=== PATIENT | male | born 1960 | race Caucasian/White ===

== ENCOUNTER → 2018-11-15 | Outpatient (CLI) | payer MEDICARE ==
--- NOTE | 2018-11-15 11:30 | Diagnostic Imaging Report ---
EXAMINATION: Right hip, 3 views. COMPARISON: None. HISTORY: 58-year-old male, right hip pain. FINDINGS: There is a right total hip prosthesis. The femoral head is asymmetrically positioned within the acetabular cup which may relate to liner wear. The hardware appears otherwise intact. There is no periprosthetic lucency. There is partially visualized sideplate and screw fixation hardware at the level of the left acetabulum with chronic appearing deformity of the left acetabulum. There is no identified acute fracture. There are vascular calcifications noted. IMPRESSION: Asymmetric positioning of the right femoral head component of the hip prosthesis within the acetabular cup which may relate to liner wear. Dictated by: Dictated on workstation # [id number]
== END ==
LOC: RAD FS 10:33
PROVIDERS: ATTEND Physician Assistant
DX: M25.551 Pain in right hip (principal); Z96.641 Presence of right artificial hip joint
CPT/HCPCS: 73502

== ENCOUNTER 2019-10-28 16:45 | Emergency (ER) | payer MEDICARE ==
[~2019-10-28] VITALS: Ht 187 cm; Wt 170.0 kg
[2019-10-28] MEDS ORDERED: ALPR0.5T7 (17:03)
[2019-10-28 17:44] LABS: HEMATOCRIT 39 % (40-54); HEMOGLOBIN 12.7 G/DL (13.3-17.7); MEAN CORPUSCULAR HEMOGLOBIN 30 PG (25-34); MEAN CORPUSCULAR HGB CONC 33 G/DL (32-36); MEAN CORPUSCULAR VOLUME 92 FL (80-99); MEAN PLATELET VOLUME 8.7 FL (7.4-10.4); PLATELET COUNT 354 10^3/uL (130-400); RED CELL DISTRIBUTION WIDTH 16.1 % (10.0-14.5)
[2019-10-28 17:45] LABS: BASOPHILS % (AUTO) 1 % (0-10); EOSINOPHILS % (AUTO) 2 % (0-10); LYMPHOCYTES % (AUTO) 27 % (12-44); MONOCYTES % (AUTO) 11 % (0-12); NEUTROPHILS % (AUTO) 60 % (42-75)
[2019-10-28 17:46] LABS: BASOPHILS # (AUTO) 0.1 10^3/uL (0.0-0.1); EOSINOPHILS # (AUTO) 0.2 10^3/uL (0.0-0.3); LYMPHOCYTES # (AUTO) 2.4 X 10^3 (1.0-4.0); NEUTROPHILS # (AUTO) 5.4 X 10^3 (1.8-7.8)
--- NOTE | 2019-10-28 17:46 | ED General ---
General Chief Complaint: Coughing up blood Stated Complaint: COUGHING UP BLOOD Nursing Triage Note: PT STATES HE WAS DRIVING ET FEELING FINE AND STARTED COUGHING UP BLOOD. 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 has been disease-free for decades pt is not aware of any bleeding prior to this no nosebleed he's not been coughing recently he is not on any blood thinners or aspirin he does take an arthritis medicine and occasional Xanax (AI HOU MD) Allergies and Home Medications Allergies Coded Allergies: No Known Drug Allergies (Unverified , 10/28/19) Patient Home Medication List Home Medication List Reviewed: Yes (DION BALDERAS JR, MD) Review of Systems Review of Systems Constitutional: no symptoms reported EENTM: see HPI Respiratory: no symptoms reported; No short of breath Gastrointestinal: no symptoms reported Genitourinary: no symptoms reported Musculoskeletal: no symptoms reported Skin: no symptoms reported (AI HOU MD) Past Ypihrlv-Eiwbww-Devtcd Hx Patient Social History Alcohol Use: Occasionally Uses Recreational Drug Use: Yes Drug of Choice: POT Smoking Status: Current Everyday Smoker Recent Foreign Travel: No Contact w/Someone Who Travel: No Recent Infectious Disease Expo: No Recent Hopitalizations: No (AI HOU MD) Past Medical History Surgeries: Yes Orthopedic Respiratory: No Cardiac: No Neurological: No Gastrointestinal: No Musculoskeletal: No Endocrine: No HEENT: No Cancer: Yes (NON-HODGKIN LYMPHOMA) What Type of Treatment Did You: Radiation BONE MARROW TRANSPLANT Psychosocial: No Integumentary: No (AI HOU MD) Physical Exam Vital Signs Vital Signs - First Documented 10/28/19 16:56 Temp 36.8 Pulse 83 Resp 16 B/P (MAP) 154/101 (118) Pulse Ox 99 O2 Delivery Room Air (DION BALDERAS JR, MD) Vital Signs Capillary Refill : Less Than 3 Seconds (AI HOU MD) Height, Weight, BMI Height: '" Weight: lbs. oz. kg; 48.00 BMI Method: General Appearance: No Apparent Distress Eyes: Bilateral Eye PERRL, Bilateral Eye EOMI HEENT: TMs Normal, Pharynx Normal, Other (patient had a little blood on his tongue a little in the right tonsillar pillar but I don't see any active bleeding any source anywhere no blood in the nose) Neck: Supple Respiratory: Lungs Clear, Normal Breath Sounds, No Accessory Muscle Use, No Respiratory Distress Cardiovascular: Regular Rate, Rhythm Gastrointestinal: Normal Bowel Sounds, Non Tender, Soft Extremity: Non Tender (AI HOU MD) Progress/Results/Core Measures Suspected Sepsis Recent Fever Within 48 Hours: No Infection Criteria Present: Suspected New Infection New/Unexplained Altered Menta: No Sepsis Screen: No Definite Risk SIRS Temperature: Pulse: 83 Respiratory Rate: 16 Laboratory Tests 10/28/19 17:19: White Blood Count 9.0 Blood Pressure 154 /101 Mean: 118 Laboratory Tests 10/28/19 17:19: INR Comment 0.9, Platelet Count 354 (AI HOU MD) Results/Orders Lab Results Laboratory Tests Test 10/28/19 17:19 Range/Units White Blood Count 9.0 4.3-11.0 10^3/uL Red Blood Count 4.22 L 4.35-5.85 10^6/uL Hemoglobin 12.7 L 13.3-17.7 G/DL Hematocrit 39 L 40-54 % Mean Corpuscular Volume 92 80-99 FL Mean Corpuscular Hemoglobin 30 25-34 PG Mean Corpuscular Hemoglobin Concent 33 32-36 G/DL Red Cell Distribution Width 16.1 H 10.0-14.5 % Platelet Count 354 130-400 10^3/uL Mean Platelet Volume 8.7 7.4-10.4 FL Neutrophils (%) (Auto) 60 42-75 % Lymphocytes (%) (Auto) 27 12-44 % Monocytes (%) (Auto) 11 0-12 % Eosinophils (%) (Auto) 2 0-10 % Basophils (%) (Auto) 1 0-10 % Neutrophils # (Auto) 5.4 1.8-7.8 X 10^3 Lymphocytes # (Auto) 2.4 1.0-4.0 X 10^3 Monocytes # (Auto) 1.0 0.0-1.0 X 10^3 Eosinophils # (Auto) 0.2 0.0-0.3 10^3/uL Basophils # (Auto) 0.1 0.0-0.1 10^3/uL Prothrombin Time 12.2 12.2-14.7 SEC INR Comment 0.9 0.8-1.4 Sodium Level 139 135-145 MMOL/L Potassium Level 3.9 3.6-5.0 MMOL/L Chloride Level 102 98-107 MMOL/L Carbon Dioxide Level 27 21-32 MMOL/L Anion Gap 10 5-14 MMOL/L Blood Urea Nitrogen 18 7-18 MG/DL Creatinine 1.14 0.60-1.30 MG/DL Estimat Glomerular Filtration Rate > 60 BUN/Creatinine Ratio 16 Glucose Level 97 70-105 MG/DL Calcium Level 9.6 8.5-10.1 MG/DL (DION BALDERAS JR, MD) My Orders Orders - DION BALDERAS JR, MD Sputum Culture (10/28/19 18:45) (DION BALDERAS JR, MD) Vital Signs/I&O 10/28/19 16:56 Temp 36.8 Pulse 83 Resp 16 B/P (MAP) 154/101 (118) Pulse Ox 99 O2 Delivery Room Air (DION BALDERAS JR, MD) Vital Signs/I&O Capillary Refill : Less Than 3 Seconds (AI HOU MD) Blood Pressure Mean: 118 Progress Note : Progress Note CXR - COPD no abnormal masses (AI HOU MD) Progress Note : Time: 18:52 Progress Note Blood now very minimal had a discussion with him about normal lab work and small amount of bleeding in his sputum that it was resolved was a lot more than that initially and has blood staining on his clothes at this point did culture the sputum we'll send him back to his primary care doctor for further evaluation discussed with him about the need to call or come back if any problems or in creasing the amount of hemoptysis (DION BALDERAS JR, MD) Transfer of Care Transfer of Care Time: 18:01 Care transferred to: Dr Balderas at shift change (AI HOU MD) Departure Impression Primary Impression: Hemoptysis Disposition: 01 HOME, SELF-CARE Condition: Stable Departure-Patient Inst. Referrals: CRISSY HARMON MD (PCP) Primary Care Physician Patient Instructions: Coughing up Blood AI HOU MD Oct 28, 2019 17:46 DION BALDERAS JR, MD Oct 28, 2019 18:54
[2019-10-28 17:53] LABS: INR 0.9 (0.8-1.4); PROTHROMBIN TIME PATIENT 12.2 SEC (12.2-14.7)
--- NOTE | 2019-10-28 17:56 | Diagnostic Imaging Report ---
INDICATION: Hemoptysis. COMPARISON: No comparison available. FINDINGS: The lungs demonstrate no focal infiltrate or consolidation. There is no evidence of an effusion or pneumothorax. Heart size and mediastinal contours appear appropriate and pulmonary vascularity appears within normal limits. The lateral view demonstrates some flattening of the diaphragms compatible with air trapping. No acute or suspicious osseous abnormality is evident. IMPRESSION: Apparent air trapping suggesting underlying COPD. No focal infiltrate or plain film evidence of nodule or mass evident. There is no effusion or pneumothorax. Pulmonary vascularity appears appropriate. Dictated by: Dictated on workstation # [id number]
[2019-10-28 18:16] LABS: BUN/CREATININE RATIO 16; CALCIUM 9.6 MG/DL (8.5-10.1); CARBON DIOXIDE 27 MMOL/L (21-32); CHLORIDE 102 MMOL/L (98-107); CREATININE SERUM 1.14 MG/DL (0.60-1.30); GFR ESTIMATED > 60; GLUCOSE 97 MG/DL (70-105); POTASSIUM 3.9 MMOL/L (3.6-5.0); SODIUM 139 MMOL/L (135-145)
[2019-10-28 18:57] VITALS: BP 154/101
--- OUTSIDE RECORDS SUMMARY | 2019-10-28 21:40 | XMS REPORT | Continuity of Care Document ---
Author Organization Unknown Address Unknown Phone Unavailable Allergies Active Description Code Type Severity Reaction Onset Reported/Identified Relationship to Patient Clinical Status Yes No Known Drug Allergies [id number] Drug Allergy Unknown N/A 10/28/2019 Medications There is no data. Problems Date Dx Coded Attending Type Code Diagnosis Diagnosed By 11/17/2018 ADINA JUAREZ Ot M25.551 PAIN IN RIGHT HIP 11/17/2018 ADINA JUAREZ Ot Z96.641 PRESENCE OF RIGHT ARTIFICIAL HIP JOINT 12/06/2018 ADINA JUAREZ Ot M25.551 PAIN IN RIGHT HIP 12/06/2018 ADINA JUAREZ Ot Z96.641 PRESENCE OF RIGHT ARTIFICIAL HIP JOINT 10/28/2019 ADINA JUAREZ Ot M25.551 PAIN IN RIGHT HIP 10/28/2019 ADINA JUAREZ Ot Z96.641 PRESENCE OF RIGHT ARTIFICIAL HIP JOINT Procedures There is no data. Results Test Result Range Complete blood count (CBC) with automate d white blood cell (WBC) differential - 10/28/19 17:19 Blood leukocytes automated count (number/volume) 9.0 10*3/uL 4.3-11.0 Blood erythrocytes automated count (number/volume) 4.22 10*6/uL 4.35-5.85 Venous blood hemoglobin measurement (mass/volume) 12.7 g/dL 13.3-17.7 Blood hematocrit (volume fraction) 39 % 40-54 Automated erythrocyte mean corpuscular volume 92 [ foz_us] 80-99 Automated erythrocyte mean corpuscular h emoglobin (mass per erythrocyte) 30 pg 25-34 Automated erythrocyte mean corpuscular h emoglobin concentration measurement (mass/volume) 33 g/dL 32-36 Automated erythrocyte distribution width ratio 16. 1 % 10.0- 14.5 Automated blood platelet count (count/volume) 354 10*3/uL 130-400 Automated blood platelet mean volume measurement 8.7 [foz_us] 7.4-10.4 Automated blood neutrophils/100 leukocytes 60 % 42-75 Automated blood lymphocytes/100 leukocytes 27 % 12-44 Blood monocytes/100 leukocytes 11 % 0-12 Automated blood eosinophils/100 leukocytes 2 % 0-10 Automated blood basophils/100 leukocytes 1 % 0-10 Blood neutrophils automated count (number/volume) 5.4 10*3 1.8-7.8 Blood lymphocytes automated count (number/volume) 2.4 10*3 1.0-4.0 Blood monocytes automated count (number/volume) 1. 0 10*3 0.0-1.0 Automated eosinophil count 0.2 10*3/uL 0 .0-0.3 Automated blood basophil count (count/volume) 0.1 10*3/uL 0.0-0.1 PT panel in platelet poor plasma by coag ulation assay - 10/28/19 17:19 Prothrombin time (PT) in platelet poor plasma by coagu lation assay 12.2 s 12.2-14.7 INR in platelet poor plasma or blood by coagulation as say 0.9 0.8-1.4 Whole blood basic metabolic panel - 10/09 17:19 Serum or plasma sodium measurement (moles/volume) 139 mmol/L 135-145 Serum or plasma potassium measurement (moles/volume) 3.9 mmol/L 3.6-5.0 Serum or plasma chloride measurement (moles/volume) 102 mmol/L 98-107 Carbon dioxide 27 mmol/L 21-32 Serum or plasma anion gap determination (moles/volume) 10 mmol/L 5-14 Serum or plasma urea nitrogen measurement (mass/volume ) 18 mg/dL 7-18 Serum or plasma creatinine measurement (mass/volume) 1.14 mg/dL 0.60-1.30 Serum or plasma urea nitrogen/creatinine mass ratio 16 NRG Serum or plasma creatinine measurement w ith calculation of estimated glomerular filtration rate > NRG Serum or plasma glucose measurement (mass/volume) 97 mg/dL 70-105 Serum or plasma calcium measurement (mass/volume) 9.6 mg/dL 8.5-10.1 Encounters ACCT No. Visit Date/Time Discharge Status Pt. Type Provider Facility Loc./Unit Complaint [id number] 10/28/2019 16:46:00 020 18:57:00 DIS Leandro BALDERAS MD, DION [facility] FS COUGHING UP BLOOD [id number] 03/17/2019 11:15:00 23:59:59 CLS Preadmit EDEN BROWNLEE, CRISSY Roa [facility] THR REVISION [id number] 11/15/2018 10:33:00 23:59:59 CLS Outpatient REN MORTON, ADINA Huerta [facility] FS Z93.641
== END 2019-10-28 18:57 | disposition home or self-care (01) ==
LOC: EDUNIT# 16:45 → ER FS 16:46
DX: R04.2 Hemoptysis (principal); F17.290 Nicotine dependence, other tobacco product, uncomplicated; Z85.72 Personal history of non-Hodgkin lymphomas; Z94.81 Bone marrow transplant status
CPT/HCPCS: 36415; 71046; 80048; 85025; 85610; 87070; 87205